=== PATIENT | male | born 1990 | race Caucasian/White ===

== ENCOUNTER 2021-02-26 14:56 | Emergency (ER) | payer OTHER, SELFPAY ==
--- NOTE | ~2021-02-26 | CT_ITS ---
EXAMINATION: CTA chest PE protocol EXAM DATE: 02/26/2021 19:01 INDICATION: Chest pain, shortness of breath, lightheadedness, elevated d-dimer. TECHNIQUE: Spiral CTA of the chest (pulmonary arteries) was performed with 100 cc Omnipaque 350 intr avenous contrast injection. Images were acquired during the pulmonary arterial phase. Coronal maxi mum intensity projection 3D-reconstructions were created by the technologist on dedicated workstation . Axial, coronal and sagittal reformatted images were reviewed. The dose-length product (DLP) for t his examination was 251.42 mGy-cm. The exposure was tailored according to patient size (auto mA exp osure control), and iterative reconstruction (ASIR) was used as additional dose reduction technique. There is no prior study for comparison. FINDINGS: Pulmonary arteries are well opacified and without intraluminal filling defects. No thora cic aortic dissection. The lungs are clear. There are no pleural or pericardial effusions. Trach eobronchial tree is patent. There is no mediastinal, hilar or axillary lymphadenopathy. There is no pneumothorax. Heart normal in size. No evidence of coronary arterial calcification. Upper abd omen is unremarkable. There is thoracic spondylosis without osteoblastic or osteolytic lesions iden tified. IMPRESSION: Unremarkable CT pulmonary examination. Reviewed, dictated and finalized at location A.
--- NOTE | ~2021-02-26 | CT_ITS ---
EXAMINATION: CT brain wo con EXAM DATE: 02/26/2021 17:18 INDICATION: Dizziness, paresthesia. TECHNIQUE: Spiral CT of the head was performed without contrast. Axial, coronal and sagittal images were reviewed. The dose-length product (DLP) for this examination was 605.33 mGy-cm. The exposure w as tailored according to patient size, and iterative reconstruction (ASIR) was used as additional dos e reduction technique. There is no prior study for comparison. FINDINGS: There is no acute intraparenchymal hemorrhage. No evidence of intraparenchymal brain mass lesion. No evidence of acute infarction. There is no mass effect or midline shift. The ventricles are normal in size. There are no extra-axial collections. There are no acute calvarial fractures. T he orbits are unremarkable. Soft tissue is unremarkable. The visualized sinuses and mastoid air steven ls are well aerated. IMPRESSION: 1. Normal head CT examination. Reviewed, dictated and finalized at location A.
--- NOTE | ~2021-02-26 | XR_ITS ---
EXAMINATION: XR chest 2V EXAM DATE: 02/26/2021 17:25 INDICATION: Dizziness. Left-sided chest pain, neck pain. TECHNIQUE: Frontal and lateral projections of the chest obtained and reviewed. There is no prior stephen dy for comparison. FINDINGS: Mild hyperinflation. The lungs are clear. There are no pleural effusions. The cardiomedia stinal silhouette is within normal limits. There is no pneumothorax suspected. The bones and soft t issues are unremarkable. IMPRESSION: Mild hyperinflation. Reviewed, dictated and finalized at location A. IMPRESSION: Mild hyperinflation.
[2021-02-26 15:10] VITALS: BP 132/75; PULSE 116; RESP 20; TEMP 36.8; O2SAT 99
[2021-02-26 15:23] LABS: Basophils Percent Auto 0.6 % (0.2-1.2); Eosinophils Absolute Auto 0.1 K/mm3 (0-0.3); Eosinophils Percent Auto 1.8 % (0-4.4); Hematocrit 44.6 % (42.0-52.0); Immature Granulocyte Absolute 0.01 K/mm3 (0.00-0.031); Immature Granulocyte Percent A 0.2 % (0-0.5); Mean Corpuscular HGB Conc 33.6 g/dl (32-36); Mean Corpuscular Hemoglobin 32.3 pg (26-34); Mean Corpuscular Volume 95.9 fl (80-100); Mean Platelet Volume 9.3 fl (7.4-10.4); Monocytes Absolute Auto 0.6 K/mm3 (0.1-0.6); Neutrophils Absolute Auto 3.4 K/mm3 (1.3-6.7); Neutrophils Percent Auto 68.4 % (45.5-73.1); Platelet Count Result 263 k/mm3 (150-375); Red Blood Count 4.65 M/mm3 (4.6-6.20); Red Cell Distribution Width 12.5 % (11.5-14.5)
[2021-02-26 15:32] LABS: Alanine Aminotransferase 18 U/L (4-50); Alkaline Phosphatase 50 U/L (38-126); Anion Gap 6 mmol/L (8-16); Aspartate Amino Transferase 39 U/L (17-59); Bilirubin,Total 0.3 mg/dL (0.2-1.3); Blood Urea Nitrogen 11 mg/dL (9-20); Calcium 9.2 mg/dL (8.4-10.2); Carbon Dioxide 29 mmol/L (22-30); Chloride 106 mmol/L (98-107); Estimated CRCL calculation 85 ml/min; Estimated Glomerular Filt Rate > 60; Glucose 105 mg/dL (75-110); Potassium 3.9 mmol/L (3.4-5.0); Sodium 141 mmol/L (137-145)
--- NOTE | 2021-02-26 16:27 | ECG_ITS ---
Measurements Intervals [place] Rate: 82 P: 45 TN: 127 QRS: 81 QRSD: 114 T: 68 QT: 363 QTc: 424 Interpretive Statements SINUS RHYTHM INTRAVENTRICULAR CONDUCTION DELAY BASELINE ARTIFACT- I, II, III, AVR, AVL, AVF, V2-V6 BORDERLINE ECG Electronically Signed On 02-26-2021 17:15:19 CDT by Gustavo Saleh D.O.
--- NOTE | 2021-02-26 16:38 | ED.GENADULT ---
HPI - General Adult General Chief complaint: Unspecified Stated complaint: dizzy/lightheaded/sob Time Seen by Provider: 02/26/21 16:26 Source: patient Mode of arrival: ambulatory Limitations: no limitations History of Present Illness HPI narrative: This is a 39-year-old male that presents the emergency department for episodes of lightheadedness x2 days. Reports he started to feel lightheaded when he is going to pass out. Associated with chest pain, shortness of breath, and paresthesias of his face. Reports he has had several episodes over the last couple of days. Denies any current symptoms. Denies fever, vision changes, vomiting, numbness, or weakness. Related Data Home Medications Medication Instructions Recorded Confirmed No Home Medications 02/26/21 02/26/21 Allergies Allergy/AdvReac Type Severity Reaction Status Date / Time Penicillins Allergy Mild Hives Verified 02/26/21 17:12 Review of Systems Review of Systems: Narrative: CONSTITUTIONAL: Denies fever CARDIOVASCULAR: Reports chest pain. Denies palpitations, or edema. RESPIRATORY: Reports dyspnea. Denies cough GASTROINTESTINAL: Denies vomiting NEUROLOGIC: Denies headache, numbness, or weakness. PSYCHIATRIC: Reports anxiety All systems reviewed & are unremarkable except as noted in HPI and below PMFSH Past Medical History Medical History (Updated 02/26/21 @ 19:33 by Alexa Gore PA-C) No active medical problems Social History Social History (Updated 02/26/21 @ 16:40 by Alexa Groe PA-C) Smoking status: Current every day smoker Alcohol intake: current Substance use: current Substance use type: marijuana Exam Narrative: Exam Narrative: GENERAL: Well-appearing, well-nourished, and in no acute distress. HEAD: Normocephalic, atraumatic. EYES: PERRLA and EOMI. ENT: Nares clear, no rhinorrhea or epistaxis. Mucous membranes moist. Oropharynx without tonsillar hypertrophy exudate or other lesions. Bilateral TMs pearly guerrero non-bulging NECK: Supple. No adenopathy or masses. No carotid bruits or JVD CHEST: Clear to auscultation. No respiratory distress. No wheezes rales or rhonchi HEART: Regular rate and rhythm. No murmur heard. Normal peripheral pulses. EXTREMITIES: Normal range of motion. No edema. Strength equal in bilateral upper and lower extremities SKIN: Warm, dry, no rash. NEURO: No focal deficits. Alert and oriented x3. CN II-XII grossly intact. Normal heel to vega PSYCH: Normal mood and affect Course Vital Signs Vital signs: Vital Signs Temperature 98.3 F 02/26/21 15:10 Pulse Rate 116 H 02/26/21 15:10 Respiratory Rate 20 02/26/21 15:10 Blood Pressure 132/75 02/26/21 15:10 Pulse Oximetry 99 02/26/21 15:10 Temperature 98.3 F 02/26/21 15:10 Pulse Rate 81 02/26/21 18:23 Respiratory Rate 18 02/26/21 18:23 Blood Pressure 127/113 H 02/26/21 18:23 Pulse Oximetry 99 02/26/21 18:23 Medical Decision Making MDM Narrative Medical decision making narrative: Patient presents to the emergency department for episodes of lightheadedness, chest pain or shortness of breath. Also reporting paresthesias. He is afebrile and nontoxic-appearing. Vitals are stable. CBC and metabolic panel without concerning findings. EKG without concerning changes and baseline troponin is negative. CT scan of the brain is normal. D-dimer is elevated, so CTA of the chest was obtained. This is without acute findings. Patient was updated on case findings. He is stable and felt appropriate for further outpatient evaluation. He is to follow-up with primary care doctor. He was given warnings to return to the ER Vital Signs Vital Signs: Vital Signs Temperature 98.3 F 02/26/21 15:10 Pulse Rate 116 H 02/26/21 15:10 Respiratory Rate 20 02/26/21 15:10 Blood Pressure 132/75 02/26/21 15:10 Pulse Oximetry 99 02/26/21 15:10 Temperature 98.3 F 02/26/21 15:10 Pulse Rate 81 02/26/21 18:23 Respiratory Rate
[2021-02-26 17:17] LABS: INR 0.9; Prothrombin Time 12.8 Seconds (11.1-14.7)
[2021-02-26 17:18] LABS: Partial Thromboplastin Time 30.6 SECONDS (22.3-36.8)
[2021-02-26 17:20] LABS: D Dimer 0.61 ug/mL (<0.48)
[2021-02-26 17:54] LABS: Ethanol 167 mg/dL (<10)
[2021-02-26 18:07] LABS: Troponin I < 0.012 ng/mL (0.000-0.034)
--- NOTE | 2021-02-26 18:15 | PC.NURSE ---
Pt states he is intermittently getting dizzy and feels tingly in both arms , reports he can become anxious. Denies N/V. NSR on monitor, call light within reach
[2021-02-26 18:23] VITALS: BP 127/113; PULSE 81; RESP 18; O2SAT 99
== END 2021-02-26 19:44 | disposition home or self-care (01) ==
PROVIDERS: Emergency Medicine; Physician Assistant; Emergency Provider Emergency Medicine
DX: R42 Dizziness and giddiness (principal); F17.210 Nicotine dependence, cigarettes, uncomplicated
CPT/HCPCS: 36415; 70450; 71046; 71275; 80053; 80307; 84484; 85025; 85380; 85610; 85730; 93005; 99284; Q9967

== ENCOUNTER 2021-04-14 18:06 | Emergency (ER) | payer OTHER, SELFPAY ==
[2021-04-14 18:15] VITALS: BP 139/77; PULSE 98; RESP 16; TEMP 36.8; O2SAT 98
[2021-04-14] MEDS: ONDANSETRON HCL ODT 4 MG TABLET SUBLINGUAL (18:38)
--- NOTE | 2021-04-14 19:08 | PC.NURSE ---
Pt tolerated pack of cristino crackers, sprite and ice chips. Pt denies feeling nauseated at this time.
--- NOTE | 2021-04-14 19:24 | ED.NAVMDI ---
HPI - Nausea/Vomiting/Diarrhea General Chief complaint: Nausea/Vomiting/Diarrhea Stated complaint: Throwing Up Time Seen by Provider: 04/14/21 19:13 Source: patient and RN notes reviewed Mode of arrival: ambulatory Limitations: no limitations History of Present Illness HPI Narrative: Patient presents today complaining of vomiting and diarrhea since yesterday morning. States he vomited several times yesterday and 4-5 times today. He has been unable to keep down any food today but only very small amounts of fluids. He had 4-5 episodes of diarrhea yesterday and 2 today. Denies fever, abdominal pain, blood or mucus in the stool. Denies any suspicious food intake. Patient does work at a restaurant. He does share an e-cigarette with others at work because he cannot go outside to smoke. States that the people that he has been sharing the e-cigarette with have been ill. MD elicited complaint: nausea, vomiting and diarrhea Related Data Home Medications Medication Instructions Recorded Confirmed No Home Medications 02/26/21 04/14/21 Allergies Allergy/AdvReac Type Severity Reaction Status Date / Time Penicillins Allergy Mild Hives Verified 04/14/21 18:48 Review of Systems Review of Systems: Narrative: CONSTITUTIONAL: Denies body aches, fever, chills, or sweats. EYES: Denies visual changes, redness, or discharge. ENT: Denies rhinorrhea, congestion, sore throat, or otalgia. CARDIOVASCULAR: Denies chest pain, palpitations, or edema. RESPIRATORY: Denies cough or dyspnea. GASTROINTESTINAL: Denies abdominal pain. + Nausea, vomiting, diarrhea GENITOURINARY: Denies dysuria or hematuria. SKIN: Denies rash, itching, or wounds. MUSCULOSKELETAL: Denies back pain, joint pain, or myalgia. NEUROLOGIC: Denies headache, numbness, tingling, or weakness. PSYCH: Denies depression or anxiety. [facility] Past Medical History Medical History No active medical problems Social History Social History Smoking status: Current every day smoker Alcohol intake: current Substance use: current Substance use type: marijuana Comments At time of signature, I have reviewed and agree with nursing past medical, surgical, social and family history unless otherwise noted. Please see nursing chart for further information. There is no relevant family history pertinent to the presenting complaint Exam Narrative: Exam Narrative: GENERAL: Well-appearing, well-nourished, and in no acute distress. HEAD: Normocephalic, atraumatic. EYES: EOMI. No redness or drainage. Conjunctivae normal. ENT: Mucous membranes pink and moist. Nares clear. No rhinorrhea. NECK: Normal AROM. Supple. No lymphadenopathy. CHEST: No respiratory distress. Clear to auscultation. HEART: Regular rate and rhythm. No murmur appreciated. Normal peripheral pulses. ABDOMEN: Soft, nontender, nondistended, normal active bowel sounds. MUSCULOSKELETAL: No bony tenderness. EXTREMITIES: Normal range of motion. No edema. SKIN: Warm, dry, no rash. Capillary refill normal. Normal skin turgor. NEURO: No focal deficits. Alert and oriented x3. Gait steady. PSYCH: Normal affect. No signs of depression or anxiety. Course Course Emergency Course: Patient able to keep down some crackers and clear soda after a dose of Zofran. States he is feeling much better. Vital Signs Vital signs: Vital Signs Temperature 98.2 F 04/14/21 18:15 Pulse Rate 98 04/14/21 18:15 Respiratory Rate 16 04/14/21 18:15 Blood Pressure 139/77 04/14/21 18:15 Pulse Oximetry 98 04/14/21 18:15 Temperature 98.2 F 04/14/21 18:15 Pulse Rate 98 04/14/21 18:15 Respiratory Rate 16 04/14/21 18:15 Blood Pressure 139/77 04/14/21 18:15 Pulse Oximetry 98 04/14/21 18:15 Reviewed. Pt has been instructed to follow up with his PCP regarding his elevated blood pressure today. BARBARA
== END 2021-04-14 19:32 | disposition home or self-care (01) ==
PROVIDERS: Emergency Provider Nurse Practitioner
DX: R11.2 Nausea with vomiting, unspecified (principal); R19.7 Diarrhea, unspecified; F17.200 Nicotine dependence, unspecified, uncomplicated
CPT/HCPCS: 99213; A9270; G0463

== ENCOUNTER 2023-04-05 11:21 | Emergency (ER) | payer OTHER, SELFPAY ==
[2023-04-05 11:34] VITALS: BP 116/84; PULSE 87; RESP 20; TEMP 36.9; O2SAT 100
--- NOTE | 2023-04-05 11:40 | ED_ITS ---
HPI - Skin/Abscess/Foreign Bdy General Chief complaint: Skin/Abscess/Foreign Body Stated complaint: left leg possible bite History of Present Illness HPI narrative: patient presents with an insect bite to the back of left leg. Related Data Allergies Allergy/AdvReac Type Severity Reaction Status Date / Time Penicillins Allergy Mild Hives Verified 04/14/21 18:48 Review of Systems Review of Systems: CONSTITUTIONAL: Denies fever, chills, or sweats. EYES: Denies visual changes, redness, or discharge. ENT: Denies rhinorrhea, congestion, sore throat, or otalgia. CARDIOVASCULAR: Denies chest pain, palpitations, or edema. RESPIRATORY: Denies cough or dyspnea. GASTROINTESTINAL: Denies abdominal pain, nausea, vomiting, or diarrhea. GENITOURINARY: Denies dysuria or hematuria. SKIN: Denies rash or itching. MUSCULOSKELETAL: Denies back pain, joint pain, or myalgia. NEUROLOGIC: Denies headache, numbness, or weakness. PSYCHIATRIC: Denies anxiety or depression. [facility] Past Medical History Medical History No active medical problems Social History Social History Smoking status: Current every day smoker Alcohol intake: current Substance use: current Substance use type: marijuana Comments At time of signature, agree with nursing past medical, surgical, social and fa shady history. There is no relevant family history pertinent to the presenting complaint Exam Narrative: GENERAL: Well-appearing, well-nourished, and in no acute distress. HEAD: Normocephalic, atraumatic. EYES: PERRLA and EOMI. ENT: Nares clear, no rhinorrhea or epistaxis. Mucous membranes moist. NECK: Supple. CHEST: Clear to auscultation. No respiratory distress. HEART: Regular rate and rhythm. No murmur heard. Normal peripheral pulses. ABDOMEN: Soft, nontender, nondistended, normal active bowel sounds. EXTREMITIES: Normal range of motion. No edema. SKIN: Warm, dry, no rash. 1 cm area to back of left leg consistent with insect bite no concern for cellullitis NEURO: No focal deficits. Alert and oriented x3. [place] Coma Scale Eye Opening: Spontaneous 4 [place] Coma Scale Motor: Obeys Commands 6 [place] Coma Scale Verbal: Oriented 5 [place] Coma Scale Total 15 Course Course Level of Care: Express Care Visit Discharge Plan Discharge Clinical Impression: Insect bites Patient Disposition: Home, Self-Care Condition: Stable Instructions: Antibiotic Form, Insect Bite or Sting (ED) Additional Instructions: apply ointments as prescribed monitor for any s/s of infection follow up with PCP as needed Prescriptions: New triamcinolone acetonide 0.1 % cream 1 applic TOPICAL BID 5 Days Qty: 28.4 0RF mupirocin 2 % ointment 1 applic TOPICAL TID Qty: 22 0RF Follow-up/Referrals: PHYSICIAN,MANAGER FASHION [Primary Care Provider] -
== END 2023-04-05 11:49 | disposition home or self-care (01) ==
PROVIDERS: Emergency Provider Nurse Practitioner Family
DX: S80.862A Insect bite (nonvenomous), left lower leg, initial encounter (principal); W57.XXXA Bitten or stung by nonvenomous insect and other nonvenomous arthropods, initial encounter; F17.200 Nicotine dependence, unspecified, uncomplicated; F12.90 Cannabis use, unspecified, uncomplicated
CPT/HCPCS: 99213; G0463

== ENCOUNTER 2025-07-20 14:04 | Emergency (ER) | payer OTHER, SELFPAY ==
--- OUTSIDE RECORDS SUMMARY | 2025-07-20 14:07 | XMS_ITS | Clinical Summary ---
Author Organization [facility] Address [address] [place] [address] Phone Care Team Providers Care Director Of Audiology Name Role Phone Unavailable Primary Care Provider Unavailabl e Allergies Active Allergy Reactions Criticality Noted Date Comments Penicillins Hives High 04/27/2016 Medications ibuprofen (MOTRIN) 200 mg tablet Take 200 mg by mouth every 6 hours as needed for Pain, Mild. Active traMADol (ULTRAM) 50 mg tablet Take 1 Tablet (50 mg) by mouth every 6 hours as needed for Pain. 12 Tablet 0 04/28/2016 Active Social History Tobacco Use Types Packs/Day Years Used Date Smoking Tobacco: Every Day Cigarettes Smokeless Tobacco: Never Alcohol Use Standard Drinks/Week Comments Yes 8 (1 standard drink = 0.6 oz pur e alcohol) Sex and Gender Information Value Date Recorded Sex Assigned at Not on file Legal Sex Male 10:13 PM CDT Gender Identity Not on file Sexual Orientation Not on file Last Filed Vital Signs Vital Sign Reading Time Taken Comments Blood Pressure 113/75 04/28/2016 5:00 AM CDT Pulse 55 04/28/2016 5:00 AM CDT Temperature 36.3 C (97.4 F) 04/28/2016 2:00 AM CDT Respiratory Rate 18 04/28/2016 5:00 AM CDT Oxygen Saturation 100% 04/28/2016 5:00 AM CDT Inhaled Oxygen Concentration - - Weight 68 kg (150 lb) 04/27/2016 10:19 PM CDT Height 185.4 cm (6' 1) 04/27/2016 10:19 PM CDT Body Mass Index 19.79 04/27/2016 10:19 PM CDT Plan of Treatment Health Maintenance Due Date Last Done Comments DTAP/TDAP/TD VACCINES (1 - Tdap) 2010 HEPATITIS B VACCINES (1 of 3 - 19+ 3-dose series) 02/15 HPV VACCINES (1 - 3-dose SCDM series) 2018 INFLUENZA VACCINE (#1) 2025 Insurance [employer]/TRUE BLUE PPO T[employer]/TRUE BLUE PPO
--- NOTE | 2025-07-20 14:15 | ED.BACK ---
HPI - Back Pain/Injury General Chief Complaint: Back Pain/Injury Stated Complaint: Back Pain Time Seen by Provider: 07/20/25 14:30 Source: patient Mode of arrival: ambulatory Limitations: no limitations History of Present Illness HPI Narrative: Cesar is a 35-year-old male patient presenting to the clinic today with complaints of low back pain x1 day. He reports yesterday her her Dosepak when he was leaning over to scoop the cap box and lifting a 40 lb container of cat litter up the stairs. Is having pain to bilateral lower back-rates the pain currently a 4 when resting but rates the a 8-9 out of 10 with movement. No saddle anesthesia or loss of bowel or bladder. Denies any radicular pain down lower extremities. No blood in his urine-no urinary symptoms. Took ibuprofen 800 mg around 10 15 this a.m. Also took some BC Powder when he got to work Related Data Allergies Allergy/AdvReac Type Severity Reaction Status Date / Time Penicillins Allergy Mild Hives Verified 07/20/25 14:12 Review of Systems Review of Systems: Pertinent positives per HPI. Patient denies any fever, chills, rash, headache, visual changes, dizziness, cough, runny nose, sore throat, shortness of breath, chest pain, palpitations, nausea, vomiting, diarrhea, constipation, abdominal pain, or any urinary issues. [facility] Past Medical History Medical History (Reviewed 04/15/21 @ 08:09 by Iwona Singh, [facility], ) No active medical problems Social History Social History Smoking status: Current every day smoker Alcohol intake: current Substance use: current Substance use type: marijuana Comments At the time of my signature, I reviewed and agree with the nursing past medical, surgical, social, and family history. There is no relevant family history pertinent to the patient complaint. Exam Narrative: General: Well-developed, well nourished, in no apparent distress Head: Normocephalic, atraumatic. Cardio: Regular rate and rhythm, s1 and s2 normal, no murmur appreciated. Resp: Clear to auscultation bilaterally, no rhonchi, rales, wheezing or rubs. Musculoskeletal: No deformity, lower lumbar paraspinous musculature-tender to palpation, grossly normal range of motion, muscle strength strong and equal in BLE. SLT negative, patellar reflexes 2/4 bilaterally, negative foot drop, cautious- normal gait and station Course Course Emergency Course: Portions of this record may have been created with voice recognition software. Level of Care: Express Care Visit Vital Signs Vital signs: Vital signs reviewed MDM - Back Pain/Injury MDM Narrative Medical decision making narrative: At the time of visit patient is resting comfortably on the exam table. Patient appears to be nontoxic. complaints of low back pain x1 day. He reports yesterday her her Dosepak when he was leaning over to scoop the cap box and lifting a 40 lb container of cat litter up the stairs. Is having pain to bilateral lower back-rates the pain currently a 4 when resting but rates the a 8-9 out of 10 with movement. No saddle anesthesia or loss of bowel or bladder. Denies any radicular pain down lower extremities. No blood in his urine-no urinary symptoms. Took ibuprofen 800 mg around 10 15 this a.m. Also took some BC Powder when he got to work. On exam patient has paraspinous muscular tenderness to the lumbar spine region, negative foot drop, bilateral lower muscle strength strong and equal, patellar reflexes 2/4, cautious gait. Plan: I suspect patient has a low back strain. Prescription for Medrol Dosepak and Flexeril. Work note was given. Supportive measures were discussed with the patient and they voiced understanding discharge instructions and agrees to treatment plan. Return precautions reviewed Differential Diagnosis Differential diagnosis: Likely lumbar radiculopathy, sciatica, strain of lumbar region, renal colic, pyelonephritis, thoracic back pain, AAA and discitis Discharge Plan Discharge Clinical Impression: Strain of muscle, fascia and tendon of lower back, initial encounter Patient Disposition: Home Condition: Stable Instructions: Antibiotic Form, Low Back Strain (ED), Acute Low Back Pain (ED) Additional Instructions: Take any prescription medication only as prescribed- Medrol dose pack and cyclobenzaprine Be mindful of sedation precautions given to you if taking a muscle relaxer. May use heat or ice to the affected area Consider massage or chiropractor adjustment if this was discussed with provider May use blue emu, lidocaine patches, or asper cream to affected area- do not apply heat or ice directly over cream- can cause burn. Complete appropriate back stretching exercises. Follow up with your PCP in 3-5 days if symptom persist. Patient Language: Fijian Prescriptions: New methylprednisolone [Medrol (Daniel)] 4 mg tablets,dose pack See Rx Instructions PO .COMPLEX Qty: 21 0RF Rx Instructions: orally per package directions cyclobenzaprine 10 mg tablet 10 mg PO Q8H PRN (Reason: muscle spasm) 7 Days Qty: 21 0RF Follow-up/Referrals: PHYSICIAN,DIRECTOR CLIENT [Primary Care Provider, Internal Medicine] Stand Alone Forms: Work/School Release IP Time of Disposition: 14:32 Quality NIHSS Nursing Documentation ED NIHSS nursing documentation: reviewed/agree
[2025-07-20 14:16] VITALS: BP 128/73; PULSE 104; RESP 22; TEMP 36.4; O2SAT 99
== END 2025-07-20 14:46 | disposition home or self-care (01) ==
PROVIDERS: Emergency Provider Nurse Practitioner Family
DX: S39.012A Strain of muscle, fascia and tendon of lower back, initial encounter (principal); X50.0XXA Overexertion from strenuous movement or load, initial encounter; F17.200 Nicotine dependence, unspecified, uncomplicated; F12.90 Cannabis use, unspecified, uncomplicated
CPT/HCPCS: 99213; G0463